=== PATIENT | female | born 1960 | race Caucasian/White ===

== ENCOUNTER 2018-09-06 08:23 | Day surgery (SDC) | payer OTHER, BC ==
[2018-09-01 18:25] VITALS: BMI 40.3
[2018-09-06] MEDS ORDERED: PROPOFOL 20 ML ONE ×2 (10:16)
[2018-09-06 13:38] VITALS: TEMP 97.7
[2018-09-06 13:44] VITALS: BP 118/70; PULSE 75
== END 2018-09-06 11:40 | disposition home or self-care (01) ==
LOC: FASU-ENDO 08:23
PROVIDERS: ATTEND Internal Medicine Gastroenterology
PROC: 0DJD8ZZ Inspection of Lower Intestinal Tract, Via Natural or Artificial Opening Endoscopic (ICD-10-PCS; principal; 2018-09-06 09:30)
DX: Z86.010 Personal history of colon polyps (principal); K57.30 Diverticulosis of large intestine without perforation or abscess without bleeding; Z88.0 Allergy status to penicillin; Z91.013 Allergy to seafood